=== PATIENT | male | born 1990 | race Caucasian/White ===

== ENCOUNTER 2024-05-16 17:08 | Emergency (ER) | payer OTHER, BC ==
[2024-05-16] MEDS: Acetaminophen 325 MG Tab PO ONE (18:09)
== END 2024-05-16 19:30 | disposition home or self-care (01) ==
LOC: VM.ED 17:08
DX: S01.01XA Laceration without foreign body of scalp, initial encounter (principal); Z79.899 Other long term (current) drug therapy; Z91.048 Other nonmedicinal substance allergy status; V89.2XXA Person injured in unspecified motor-vehicle accident, traffic, initial encounter
CPT/HCPCS: 12002; 99284; A9270-GY